=== PATIENT | male | born 1970 | race Two or more races ===

== ENCOUNTER 2019-03-10 10:57 | Outpatient (CLI) | payer OTHER | END 2019-03-10 11:29 | disposition home or self-care (01) | LOC: LAB 10:57 | DX: Z01.818 Encounter for other preprocedural examination (principal); K42.9 Umbilical hernia without obstruction or gangrene ==

== ENCOUNTER 2019-03-14 06:51 | Emergency (ER) | payer OTHER ==
[~2019-03-14] VITALS: Ht 175.3 cm; Wt 104.3 kg
== END 2019-03-14 10:59 | disposition home or self-care (01) ==
LOC: ER 06:51
DX: K59.09 Other constipation (principal); K40.90 Unilateral inguinal hernia, without obstruction or gangrene, not specified as recurrent

== ENCOUNTER 2019-03-14 18:21 | Inpatient (IN) | payer OTHER ==
--- NOTE | 2019-03-14 18:34 | NUR ---
PTE REFIERE DOLOR ABDOMINAL SE ASIM S/V Y SE UBICA EN AREA DE OBSERVACION
--- NOTE | 2019-03-14 19:35 | NUR ---
SE ORIENTA A PACIENTE SOBRE TRATAMIENTO. SE ASIM MUESTRAS ORDENADAS. SE CANALIZA CON AREA DE VENOPUNCION OTILIO DE EDEMA O ENROJECIMIENTO. SE ADMINISTRAN MEDICAMENTOS ORDENADOS. SE MANTIENE EN OBSERVACION POR CAMBIOS.
--- NOTE | 2019-03-15 00:48 | NUR ---
SE RECIBE PACIENTE ALERTA Y ORIENTADO X3 EN CAMA CON BARANDAS ELEVADAS Y CABEZERA A [address], AREA DE VENOPUNCION PATENTE Y OTILIO DE EDEMA, BAJANDO MEDICAMENTOS ORDENADOS. PACIENTE SIN DOLOR SE MANTIENE BAJO OBSERVACION POR CAMBIOS. AL MOMENTO ESTABLE.
[2019-03-24] MEDS ORDERED: POLY119PG PO (14:50)
== END 2019-03-24 17:04 | disposition home or self-care (01) | DRG 336 ==
LOC: ER 18:21 → SURG 03-15 09:20 → SEC-K 03-15 09:20 → SURG 03-15 18:46
PROVIDERS: ADMIT Surgery
PROC: 0DNW4ZZ Release Peritoneum, Percutaneous Endoscopic Approach (ICD-10-PCS; 2019-03-15)
PROC: 0WQF4ZZ Repair Abdominal Wall, Percutaneous Endoscopic Approach (ICD-10-PCS; principal; 2019-03-15 10:00)
PROC: BW21ZZZ Computerized Tomography (CT Scan) of Abdomen and Pelvis (ICD-10-PCS; 2019-03-22)
DX: K42.0 Umbilical hernia with obstruction, without gangrene (principal); E87.0 Hyperosmolality and hypernatremia; K56.51 Intestinal adhesions [bands], with partial obstruction; K91.89 Other postprocedural complications and disorders of digestive system; N17.8 Other acute kidney failure; K59.09 Other constipation; E86.0 Dehydration